=== PATIENT | male | born 1995 | race Caucasian/White ===

== ENCOUNTER 2019-09-01 23:36 | Emergency (ER) | payer MEDICAID ==
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
--- NOTE | 2019-09-02 06:57 | CR ---
Chest: Two views of the chest were obtained. Comparison: No prior chest imaging. Heart size and mediastinum are normal. Lungs are clear. Bony structures are unremarkable for the patient's age. Impression: 1. Nothing acute is seen on two-view chest x-ray. Diagnostic code #1
== END 2019-09-02 00:56 | disposition home or self-care (01) ==
LOC: JD.ED 23:36
DX: R07.9 Chest pain, unspecified (principal); I10 Essential (primary) hypertension
CPT/HCPCS: 71046; 71046-26; 93005; 99285-25

== ENCOUNTER 2019-09-04 21:38 | Emergency (ER) | payer MEDICAID ==
[2019-09-04] MEDS ORDERED: HYDROmorphone 0.5 MG/0.5 ML Syringe IM ONE (22:10)
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
== END 2019-09-04 22:50 | disposition home or self-care (01) ==
LOC: JD.ED 21:38
DX: M54.5 Low back pain (principal); I10 Essential (primary) hypertension
CPT/HCPCS: 96372; 99283; J1170

== ENCOUNTER 2020-02-12 15:46 | Emergency (ER) | payer MEDICAID ==
[2020-02-12] MEDS ORDERED: Ondansetron 4 MG/2 ML SDV IVPUSH ONE (17:06)
[2020-02-12] MEDS ORDERED: Ketorolac 30 MG/ML SDV IVPUSH ONE (17:06)
[2020-02-12] MEDS ORDERED: Sodium Chloride 0.9% 10 ML Syringe FLUSH PRN (17:06)
[2020-02-12] MEDS ORDERED: Sodium Chloride 0.9% 1,000 ML IV SCH (17:15)
--- NOTE | 2020-02-12 19:07 | EDM.PDOC ---
ED HPI GENERAL MEDICAL PROBLEM - General Chief Complaint: General Stated Complaint: PAIN HIPS, KNEES AND BACK Time Seen by Provider: 02/12/20 16:07 Source of Information: Reports: Patient History Limitations: Reports: No Limitations - History of Present Illness INITIAL COMMENTS - FREE TEXT/NARRATIVE: Patient is a 25-year-old male who presents with complaints of bilateral knee pain hip pain back pain, and nausea over the last 2 weeks. Patient is currently undergoing gender transition and goes by the name "Shannen". She states that the symptoms have been occurring intermittently for the past few weeks. She was initially having some dizziness with the symptoms as well, however these have resolved. She did see her primary care provider, Kasye Bravo , with regards to this and was advised that it was likely a viral process. She denies any fevers, vomiting, or diarrhea. There is been no known injury to the hips, knees, or back. She has been taking [id number] equate arthritis for the pain. Last dose of this was this morning. She has been trying to adhere to a liquid diet, however did eat some pasta salad last night. She describes the pain to her hips as a dull throbbing and that her knees are "aching ". Symptoms have not changed or worsened since she was seen by her primary care provider, however she states that she was "forced to come here ". She states that her hormone doses were increased at the end of November. She was initially on estrogen 2 mg daily. It was increased to 2 mg twice daily and Spiriva lactone was also added. Overall she states she is been tolerating this well. She had been on these higher medications 1 month before the symptoms began. - Related Data Allergies Allergy/AdvReac Type Severity Reaction Status Date / Time No Known Allergies Allergy Verified 02/12/20 16:01 Home Meds: Home Meds Melatonin 10 mg PO DAILY 09/04/19 [History] Estradiol [Estrace] 2 mg PO 02/12/20 [History] Spironolactone [Aldactone] 200 mg PO DAILY 02/12/20 [History] Past Medical History Cardiovascular History: Reports: Hypertension Other Cardiovascular History: As child Musculoskeletal History: Reports: Arthritis, Back Pain, Chronic Psychiatric History: Reports: Depression - Past Surgical History HEENT Surgical History: Reports: Adenoidectomy, Tonsillectomy Social & Family History - Tobacco Use Smoking Status *Q: Never Smoker Second Hand Smoke Exposure: No - Caffeine Use Caffeine Use: Reports: None - Recreational Drug Use Recreational Drug Use: No ED ROS GENERAL - Review of Systems Review Of Systems: Comprehensive ROS is negative, except as noted in HPI. ED EXAM, GENERAL - Physical Exam Exam: See Below Exam Limited By: No Limitations General Appearance: Alert, WD/WN, No Apparent Distress Ears: Normal External Exam, Normal Canal, Hearing Grossly Normal, Normal TMs Throat/Mouth: Normal Inspection, Normal Lips, Normal Teeth, Normal Gums, Normal Oropharynx, Normal Voice, No Airway Compromise Respiratory/Chest: No Respiratory Distress, Lungs Clear, Normal Breath Sounds, No Accessory Muscle Use, Chest Non-Tender Cardiovascular: Normal Peripheral Pulses, Regular Rate, Rhythm, No Edema, No Gallop, No JVD, No Murmur, No Rub GI/Abdominal: Normal Bowel Sounds, Soft, No Organomegaly, No Distention, No Abnormal Bruit, No Mass, Tender (Generalized tenderness throughout) Extremities: Normal Inspection, Normal Range of Motion, Non-Tender, Normal Capillary Refill, No Pedal Edema Neurological: Alert, Oriented, CN II-XII Intact, Normal Cognition, Normal Gait, Normal Reflexes, No Motor/Sensory Deficits Psychiatric: Normal Affect, Normal Mood Skin Exam: Warm, Dry, Intact, Normal Color, No Rash Course - Vital Signs Last Recorded V/S: Last Vital Signs Temp 98.7 F 02/12/20 15:56 Pulse 96 02/12/20 15:56 Resp 16 02/12/20 15:56 BP 129/88 02/12/20 15:56 Pulse Ox 100 02/12/20 15:56 Orthostatic Blood Pressure [ 116/77 Standing] Orthostatic Blood Pressure [ 109/81 Sitting] Orthostatic Blood Pressure [ 122/80 Supine] - Orders/Labs/Meds Orders: Active Orders 24 hr Category Date Time Status Orthostatic Vital Signs [RC] ASDIRECTED Care 02/12/20 16:08 Active Peripheral IV Care [RC] . DIRECTED Care 02/12/20 17:06 Active Sodium Chloride 0.9% [Normal Saline] 1,000 ml Med 02/12/20 17:15 Active IV ASDIRECTED Sodium Chloride 0.9% [Saline Flush] Med 02/12/20 17:06 Active 10 ml FLUSH ASDIRECTED PRN Peripheral IV Insertion Adult [OM.PC] Stat Oth 02/12/20 17:06 Ordered Medication Orders Sodium Chloride (Normal Saline) 1,000 mls @ 999 mls/hr IV ASDIRECTED NILTON Last Admin: 02/12/20 17:45 Dose: 999 mls/hr Sodium Chloride (Saline Flush) 10 ml FLUSH ASDIRECTED PRN PRN Reason: Keep Vein Open Last Admin: 02/12/20 18:02 Dose: 10 ml Labs: Laboratory Tests 02/12/20 02/12/20 02/12/20 Range/Units 17:48 17:48 17:48 WBC 8.03 (4.23-9.07) K/mm3 RBC 4.85 (4.63-6.08) M/mm3 Hgb 14.9 (13.7-17.5) gm/dl Hct 43.0 (40.1-51.0) % MCV 88.7 (79.0-92.2) fl MCH 30.7 (25.7-32.2) pg MCHC 34.7 (32.2-35.5) g/dl RDW Std Deviation 39.1 (35.1-43.9) fL Plt Count 375 H D (163-337) K/mm3 MPV 9.2 L (9.4-12.3) fl Neut % (Auto) 67.1 (34.0-67.9) % Lymph % (Auto) 24.4 (21.8-53.1) % Calhoun % (Auto) 5.1 L (5.3-12.2) % Eos % (Auto) 2.6 (0.8-7.0) Baso % (Auto) 0.4 (0.1-1.2) % Neut # (Auto) 5.39 H (1.78-5.38) K/mm3 Lymph # (Auto) 1.96 (1.32-3.57) K/mm3 Calhoun # (Auto) 0.41 (0.30-0.82) K/mm3 Eos # (Auto) 0.21 (0.04-0.54) K/mm3 Baso # (Auto) 0.03 (0.01-0.08) K/mm3 Sodium 140 (136-145) mEq/L Potassium 4.1 (3.5-5.1) mEq/L Chloride 102 (98-107) mEq/L Carbon Dioxide 29 (21-32) mEq/L Anion Gap 13.1 (5-15) BUN 8 (7-18) mg/dL Creatinine 0.7 (0.7-1.3) mg/dL Est Cr Clr Drug Dosing 153.45 mL/min Estimated GFR (MDRD) > 60 (>60) mL/min BUN/Creatinine Ratio 11.4 L (14-18) Glucose 93 (74-106) mg/dL Calcium 9.5 (8.5-10.1) mg/dL Total Bilirubin 0.4 (0.2-1.0) mg/dL AST 15 (15-37) U/L ALT 21 (16-63) U/L Alkaline Phosphatase 93 (46-116) U/L C-Reactive Protein 1.2 H* (<1.0) mg/dL Total Protein 7.5 (6.4-8.2) g/dl Albumin 3.8 (3.4-5.0) g/dl Globulin 3.7 gm/dL Albumin/Globulin Ratio 1.0 (1-2) TSH 3rd Generation 0.945 (0.358-3.74) uIU/mL Urine Color Yellow (Yellow) Urine Appearance Clear (Clear) Urine pH 7.0 (5.0-8.0) Ur Specific [place] 1.015 (1.005-1.030) Urine Protein Negative (Negative) Urine Glucose (UA) Negative (Negative) Urine Ketones Negative (Negative) Urine Occult Blood Negative (Negative) Urine Nitrite Negative (Negative) Urine Bilirubin Negative (Negative) Urine Urobilinogen 0.2 (0.2-1.0) Ur Leukocyte Esterase Negative (Negative) Urine RBC Not seen (0-5) /hpf Urine WBC Not seen (0-5) /hpf Ur Squamous Epith Cells 0-5 (0-5) /hpf Urine Bacteria Not seen (FEW) /hpf Urine Mucus Not seen (FEW) /hpf Meds: Medications Generic Name Dose Route Start Last Admin Trade Name Freq PRN Reason Stop Dose Admin Sodium Chloride 1,000 mls @ 999 mls/hr 02/12/20 17:15 02/12/20 17:45 Normal Saline IV 999 mls/hr ASDIRECTED NILTON Administration Sodium Chloride 10 ml 02/12/20 17:06 02/12/20 18:02 Saline Flush FLUSH 10 ml ASDIRECTED PRN Administration Keep Vein Open Discontinued Medications Generic Name Dose Route Start Last Admin Trade Name Chencho PRN Reason Stop Dose Admin Ketorolac Tromethamine 30 mg 02/12/20 17:06 02/12/20 17:45 Toradol IVPUSH 02/12/20 17:07 30 mg ONETIME ONE Administration Ondansetron HCl 4 mg 02/12/20 17:06 02/12/20 17:45 Zofran IVPUSH 02/12/20 17:07 4 mg ONETIME ONE Administration - Re-Assessments/Exams Free Text/Narrative Re-Assessment/Exam: 02/12/20 19:05 Patient's work-up was grossly unremarkable. Discussed with her that her joint pains and nausea are likely related to a viral illness. We will prescribe her an Insta med for Zofran. Recommend a clear liquid diet and then advance as tolerated. Recommend that she follow-up with her primary care provider this coming week if the symptoms do not improve. Discharge instructions as documented. Departure - Departure Time of Disposition: 19:07 Disposition: Home, Self-Care 01 Condition: Fair Clinical Impression: Viral illness - Discharge Information *PRESCRIPTION DRUG MONITORING PROGRAM REVIEWED*: No *COPY OF PRESCRIPTION DRUG MONITORING REPORT IN PATIENT DOYLE: No Instructions: Viral Illness, Adult Referrals: Kasey Bravo PA-C [Primary Care Provider] - Additional Instructions: You were seen in the emergency department today for joint aches in your hips, knees, and back, as well as nausea. Your work-up included blood work as well as a urinalysis. These were found to be normal. While in the ER you received a liter of IV fluids, Zofran for nausea, and Toradol for pain. As we discussed , it is likely that you are suffering from a viral illness. Recommend that you maintain a clear liquid diet for at least the next 24 hours and then advance as tolerated. A prescription for Zofran has been provided to you. Use this as needed every 6 hours for nausea. If your symptoms do not improve, I recommend that you follow-up with your primary care provider Kasey Bravo in the clinic. Return to the ER as needed. Sepsis Event Note - Evaluation Sepsis Screening Result: No Definite Risk - Focused Exam Vital Signs: Vital Signs Temp Pulse Resp BP Pulse Ox 02/12/20 15:56 98.7 F 96 16 129/88 100 Date Exam was Performed: 02/12/20 Time Exam was Performed: 19:01 - My Orders Last 24 Hours: My Active Orders 02/12/20 16:08 Orthostatic Vital Signs [RC] ASDIRECTED 02/12/20 17:06 Peripheral IV Care [RC] . DIRECTED Sodium Chloride 0.9% [Saline Flush] 10 ml FLUSH ASDIRECTED PRN Peripheral IV Insertion Adult [OM.PC] Stat 02/12/20 17:15 Sodium Chloride 0.9% [Normal Saline] 1,000 ml IV ASDIRECTED - Assessment/Plan Last 24 Hours: My Active Orders 02/12/20 16:08 Orthostatic Vital Signs [RC] ASDIRECTED 02/12/20 17:06 Peripheral IV Care [RC] . DIRECTED Sodium Chloride 0.9% [Saline Flush] 10 ml FLUSH ASDIRECTED PRN Peripheral IV Insertion Adult [OM.PC] Stat 02/12/20 17:15 Sodium Chloride 0.9% [Normal Saline] 1,000 ml IV ASDIRECTED
== END 2020-02-12 19:20 | disposition home or self-care (01) ==
LOC: JD.ED 15:46
DX: B34.9 Viral infection, unspecified (principal); I10 Essential (primary) hypertension
CPT/HCPCS: 36415; 80053; 81001; 84443; 85025; 86140; 96361; 96374; 96375; 99283; J1885; J2405; J7030

== ENCOUNTER 2020-06-19 08:58 | Day surgery (SDC) | payer MEDICAID ==
--- NOTE | 2020-06-19 08:47 | PCM.PREANE ---
Preanesthetic Assessment - Anesthesia/Transfusion/Family Hx Anesthesia History: Prior Anesthesia Without Reaction Family History of Anesthesia Reaction: No Transfusion History: No Prior Transfusion(s) Intubation History: Unknown - Review of Systems General: No Symptoms Pulmonary: No Symptoms Cardiovascular: No Symptoms (History of HTN) Gastrointestinal: No Symptoms (GERD improved), Abdominal Pain, Diarrhea, Difficulty Swallowing (swallowing bread) Neurological: No Symptoms (history of lower back pain), Headache (migraines with vertigo) Other: Reports: Easy Bleeding, Sinus Problem (seasonal allergies), Depression, Anxiety - Physical Assessment NPO Status Date: 06/18/20 NPO Status Time: 21:00 Vital Signs: HR: B/P: Sat: Temp: Resp: Height: 1.7 m Weight: 61 kg ASA Class: 2 Mental Status: Alert & Oriented x3 Airway Class: Mallampati = 2 Dentition: Reports: Normal Dentition, Caries Thyro-Mental Finger Breadths: 3 Mouth Opening Finger Breadths: 3 ROM/Head Extension: Full Lungs: Clear to Auscultation, Normal Respiratory Effort Cardiovascular: Regular Rate, Regular Rhythm, No Murmurs - Allergies Allergies/Adverse Reactions: Allergies Allergy/AdvReac Type Severity Reaction Status Date / Time No Known Allergies Allergy Verified 06/18/20 12:57 - Anesthesia Plan Pre-Op Medication Ordered: None - Acknowledgements Anesthesia Type Planned: MAC Pt an Appropriate Candidate for the Planned Anesthesia: Yes Alternatives and Risks of Anesthesia Discussed w Pt/Guardian: Yes Pt/Guardian Understands and Agrees with Anesthesia Plan: Yes PreAnesthesia Questionnaire HEENT History: Reports: Allergic Rhinitis Cardiovascular History: Reports: Hypertension Other Cardiovascular History: As child Respiratory History: Reports: None Gastrointestinal History: Reports: Gastritis, Other (See Below) Other Gastrointestinal History: epigastric pain, nausea Genitourinary History: Reports: Other (See Below) Other Genitourinary History: dysuria, erectile dysfunction DEBURRER STRIP History: Reports: None Musculoskeletal History: Reports: Arthritis, Back Pain, Chronic, Other (See Below) Other Musculoskeletal History: bilateral hip pain Neurological History: Reports: None Psychiatric History: Reports: Anxiety, Depression, Other (See Below) Other Psychiatric History: defect, gender dysphoria, insomnia Endocrine/Metabolic History: Reports: None Hematologic History: Reports: None Immunologic History: Reports: None Oncologic (Cancer) History: Reports: None Dermatologic History: Reports: Other (See Below) Other Dermatologic History: atopic dermatitis, keratosis pilaris - Past Surgical History Head Surgeries/Procedures: Reports: None HEENT Surgical History: Reports: Adenoidectomy, Tonsillectomy Respiratory Surgical History: Reports: None Female Surgical History: Reports: None Male Surgical History: Reports: None Endocrine Surgical History: Reports: None Neurological Surgical History: Reports: None Musculoskeletal Surgical History: Reports: Other (See Below) Other Musculoskeletal Surgeries/Procedures:: bilateral hand surgeries Oncologic Surgical History: Reports: None Dermatological Surgical History: Reports: None - SUBSTANCE USE Smoking Status *Q: Never Smoker Recreational Drug Use History: No - HOME MEDS Home Medications: Home Meds Melatonin 10 mg PO BEDTIME 09/04/19 [History] estradioL [Estrace] 2 mg PO BID 02/12/20 [History] Acetaminophen [Tylenol 8 Hour] 650 mg PO QID PRN 06/18/20 [History] Omeprazole Magnesium [Prilosec Otc] 20 mg PO DAILY 06/18/20 [History] Spironolactone [Aldactone] 100 mg PO BID 06/18/20 [History] - CURRENT (IN HOUSE) MEDS Current Meds: Current Medications Lactated Ringer's (Ringers, Lactated) 1,000 mls @ 125 mls/hr IV ASDIRECTED NILTON Stop: 06/19/20 23:00 Lidocaine/Sodium Bicarbonate (Buffered Lidocaine 1% In Ns 8.4%) 0.25 ml IDERM ONETIME PRN PRN Reason: Prior to IV Start Stop: 06/19/20 18:00 Sodium Chloride (Saline Flush) 10 ml FLUSH ASDIRECTED PRN PRN Reason: Keep Vein Open Stop: 06/19/20 18:00
[~2020-06-19 08:58] MED LIST: Lactated Ringers 1,000 ML IV SCH; Lidocaine 1% 4 ML ONE; Lidocaine 1%/Sod Bicarbonate in NS 8.4% 1 ML Syringe IDERM PRN; Midazolam 1 MG/ML 2 ML SDV ONE; Propofol 200 MG/20 ML SDV ONE; Sodium Chloride 0.9% 10 ML Syringe FLUSH PRN
[2020-06-19] MEDS ORDERED: fentaNYL 100 MCG/2 ML SDV ONE (09:55)
[2020-06-19] MEDS ORDERED: Propofol 200 MG/20 ML SDV ONE (10:03)
--- NOTE | 2020-06-19 10:09 | PCM.PRNOTE ---
- Free Text/Narrative Note: Date: 06/19/2020 Procedure: diagnostic esophagogastroduodenoscopy Endoscopist: Rigoberto Peoples MD Findings: no abnormal findings. Biopsies were obtained at the duodenum, antrum, and distal esophagus. Detailed Report: The patient was taken to the endoscopy suite and placed in left lateral decubitus position. Time out was performed and monitored sedation initiated. A bite block was placed and the endoscope was inserted into the mouth. The scope was advanced to the duodenum with ease. The duodenum appeared normal; a biopsy was obtained with forceps. The stomach also appeared normal without ulceration. A sample from the antrum was obtained. On retroflexion, no hiatal hernia was noted. The Z-line appeared normal and there were no findings suggestive of esophagitis. A sample of distal esophageal mucosa was obtained. Air was then suctioned from the stomach and the scope withdrawn. The patient tolerated the p rocedure well.
--- NOTE | 2020-06-19 10:23 | PCM48HPAN ---
Post Anesthesia Note - EVALUATION WITHIN 48HRS OF ANESTHETIC Vital Signs in Normal Range: Yes Patient Participated in Evaluation: Yes Respiratory Function Stable: Yes Airway Patent: Yes Cardiovascular Function Stable: Yes Hydration Status Stable: Yes Pain Control Satisfactory: Yes Nausea and Vomiting Control Satisfactory: Yes Mental Status Recovered: Yes Vital Signs: Last Vital Signs Temp 36.9 C 06/19/20 08:57 Pulse 89 06/19/20 08:57 Resp 16 06/19/20 08:57 BP 112/70 06/19/20 08:57 Pulse Ox 98 06/19/20 08:57 - COMMENTS/OBSERVATIONS Free Text/Narrative:: no anesthesia complications noted
== END 2020-06-19 10:55 | disposition home or self-care (01) ==
LOC: JD.SDS 08:58
PROVIDERS: ATTEND Surgery
DX: K21.0 Gastro-esophageal reflux disease with esophagitis (principal); K31.9 Disease of stomach and duodenum, unspecified; I10 Essential (primary) hypertension; Z79.899 Other long term (current) drug therapy
CPT/HCPCS: 43239; J2001; J2250; J2704; J3010; J7120; 00731

== ENCOUNTER 2023-06-08 14:17 | Emergency (ER) | payer MEDICAID ==
[2023-06-08 15:00] LABS: BASOPHILS ABSOLUTE AUTO 0.05 K/mm3 (0.01-0.08); BASOPHILS PERCENT AUTO 0.8 % (0.1-1.2); EOSINOPHILS ABSOLUTE AUTO 0.34 K/mm3 (0.04-0.36); EOSINOPHILS PERCENT AUTO 5.3 (0.7-5.8); HEMATOCRIT 38.3 % (34.1-44.9); HEMOGLOBIN 12.8 gm/dl (11.2-15.7); IMMATURE GRAN ABSOLUTE AUTO 0.02 K/mm3 (0.00-0.10); IMMATURE GRAN PERCENT AUTO 0.3 % (<=1.0); LYMPHOCYTES ABSOLUTE AUTO 1.65 K/mm3 (1.18-3.74); LYMPHOCYTES PERCENT AUTO 25.9 % (19.3-51.7); MEAN CORPUSCULAR HEMOGLOBIN 29.5 pg (25.6-32.2); MEAN CORPUSCULAR HGB CONC 33.4 g/dl (32.2-35.5); MEAN CORPUSCULAR VOLUME 88.2 fl (79.4-94.8); MONOCYTES ABSOLUTE AUTO 0.61 K/mm3 (0.24-0.36); MONOCYTES PERCENT AUTO 9.6 % (4.7-12.5); NEUTROPHILS ABSOLUTE AUTO 3.69 K/mm3 (1.56-6.13); NEUTROPHILS PERCENT AUTO 58.1 % (34.0-71.1); PLATELET COUNT,PLT 342 K/mm3 (182-369); RED BLOOD CELL COUNT 4.34 M/mm3 (3.98-5.22); WHITE BLOOD CELL COUNT,WBC 6.36 K/mm3 (3.98-10.04)
[2023-06-08 15:06] LABS: INR 0.93
[2023-06-08 15:07] LABS: PTT,PARTIAL THROMBOPLSTIN TIME 27.2 SECONDS (21.7-31.4)
[2023-06-08 15:12] LABS: A/G RATIO 0.9 (1-2); ALANINE AMINOTRANSFERASE,ALT 24 U/L (14-59); ALBUMIN 3.3 g/dl (3.4-5.0); ALKALINE PHOSPHATASE 117 U/L (46-116); ANION GAP 11.6 (5-15); ASPARTATE AMNIOTRANSFERASE,AST 26 U/L (15-37); BILIRUBIN TOTAL 0.4 mg/dL (0.2-1.0); BLOOD UREA NITROGEN,BUN 9 mg/dL (7-18); BUN/CREATININE RATIO 11.3 (14-18); CALCIUM 8.8 mg/dL (8.5-10.1); CARBON DIOXIDE,CO2 30 mEq/L (21-32); CHLORIDE,CL 100 mEq/L (98-107); CREATININE 0.8 mg/dL (0.55-1.02); EST CRCL DRUG DOSING (CG) 95.89 mL/min; ESTIMATED GFR 104 mL/min (>60); GLUCOSE RANDOM 127 mg/dL (70-99); POTASSIUM,K 3.6 mEq/L (3.5-5.1); PROTEIN TOTAL,TP 6.8 g/dl (6.4-8.2); SODIUM,NA 138 mEq/L (136-145)
[2023-06-08 15:15] LABS: TROPONIN I HIGH SENSITIVITY < 4 pg/mL (<=51)
== END 2023-06-08 17:45 | disposition home or self-care (01) ==
LOC: JD.ED 14:17
DX: R07.89 Other chest pain (principal); M54.6 Pain in thoracic spine; I10 Essential (primary) hypertension; Z79.899 Other long term (current) drug therapy
CPT/HCPCS: 36415; 71045; 71045-26; 80053; 84484; 85025; 85379; 85610; 85730; 93005; 93010; 99283; 99285

== ENCOUNTER 2024-06-08 17:01 | Emergency (ER) | payer MEDICAID | END 2024-06-08 19:00 | disposition home or self-care (01) | LOC: JD.ED 17:01 | DX: S29.9XXA Unspecified injury of thorax, initial encounter (principal); I10 Essential (primary) hypertension; Z79.899 Other long term (current) drug therapy; W19.XXXA Unspecified fall, initial encounter | CPT/HCPCS: 71046; 71046-26; 99283 ==

== ENCOUNTER 2024-10-20 13:02 | Emergency (ER) | payer MEDICAID ==
[2024-10-20] MEDS: Aspirin 81 MG Tab.Chew PO ONE (13:35)
[2024-10-20 14:22] LABS: BASOPHILS ABSOLUTE AUTO 0.1 K/mm3 (0.0-0.2); EOSINOPHILS ABSOLUTE AUTO 0.2 K/mm3 (0.0-0.4); EOSINOPHILS PERCENT AUTO 2.9 % (0.0-6.0); HEMATOCRIT 37.7 % (37.0-47.0); IMMATURE GRAN ABSOLUTE AUTO 0.01 K/mm3 (0.00-0.05); IMMATURE GRAN PERCENT AUTO 0.2 % (0.0-0.4); LYMPHOCYTES ABSOLUTE AUTO 1.7 K/mm3 (1.0-4.8); MEAN CORPUSCULAR HEMOGLOBIN 29.7 pg (28.0-32.0); MEAN CORPUSCULAR HGB CONC 34.5 g/dl (32.0-36.0); MEAN CORPUSCULAR VOLUME 86.3 fl (83.0-99.0); MEAN PLATELET VOLUME 9.2 fl (9.4-12.3); MONOCYTES ABSOLUTE AUTO 0.4 K/mm3 (0.0-0.8); MONOCYTES PERCENT AUTO 7.5 % (0.0-8.0); NEUTROPHILS ABSOLUTE AUTO 2.9 K/mm3 (1.8-7.7); NEUTROPHILS PERCENT AUTO 56.4 % (41.0-71.0); PLATELET COUNT,PLT 290 K/mm3 (150-400); RED BLOOD CELL COUNT 4.37 M/mm3 (4.10-5.30); WHITE BLOOD CELL COUNT,WBC 5.18 K/mm3 (3.9-11.3)
[2024-10-20 14:40] LABS: ALANINE AMINOTRANSFERASE,ALT 35 U/L (14-59); ALBUMIN 3.2 g/dl (3.4-5.0); ALKALINE PHOSPHATASE 112 U/L (46-116); ANION GAP 10.2 (5-15); ASPARTATE AMNIOTRANSFERASE,AST 21 U/L (15-37); BILIRUBIN TOTAL 0.3 mg/dL (0.2-1.0); BLOOD UREA NITROGEN,BUN 7 mg/dL (7-18); CARBON DIOXIDE,CO2 30 mEq/L (21-32); CHLORIDE,CL 101 mEq/L (98-107); CREATININE 0.7 mg/dL (0.55-1.02); EST CRCL DRUG DOSING (CG) 117.39 mL/min; ESTIMATED GFR 121 mL/min (>60); GLUCOSE RANDOM 98 mg/dL (70-99); POTASSIUM,K 4.2 mEq/L (3.5-5.1); PROTEIN TOTAL,TP 6.5 g/dl (6.4-8.2); SODIUM,NA 137 mEq/L (136-145)
[2024-10-20 15:17] LABS: TROPONIN I HIGH SENSITIVITY < 4 pg/mL (<=51)
== END 2024-10-20 15:36 | disposition home or self-care (01) ==
LOC: JD.ED 13:02
DX: R07.89 Other chest pain (principal); I10 Essential (primary) hypertension; Z79.899 Other long term (current) drug therapy
CPT/HCPCS: 36415; 71045; 80053; 84484; 85025; 85379; 99285; A9270